=== PATIENT | male | born 1995 | race Two or more races ===

== ENCOUNTER 2019-06-09 19:19 | Emergency (ER) | payer SELFPAY ==
[~2019-06-09] VITALS: Ht 147.3 cm; Wt 77.1 kg
[2019-06-09 19:55] VITALS: BP 124/83
== END 2019-06-09 21:01 | disposition home or self-care (01) ==
LOC: ER 19:19
DX: J03.90 Acute tonsillitis, unspecified (principal); Z88.0 Allergy status to penicillin

== ENCOUNTER 2019-06-19 16:47 | Observation (INO) | payer BC ==
[2019-06-19] MEDS ORDERED: PREN-96 PO (17:14)
== END 2019-06-19 18:00 | disposition home or self-care (01) | DRG 833 ==
LOC: LDRP 16:47 → EDSEX 16:47
PROVIDERS: ADMIT Specialist; ATTEND Specialist
DX: O46.92 Antepartum hemorrhage, unspecified, second trimester (principal); Z3A.21 21 weeks gestation of pregnancy
CPT/HCPCS: 59025; 76815; 81002; G0378

== ENCOUNTER 2019-10-11 09:28 | Observation (INO) | payer BC ==
[~2019-10-11 09:28] MED LIST: PREN-96 PO
[2019-10-11] MEDS ORDERED: FERR-7 PO (10:00)
[2019-10-11 10:31] LABS: Basophils % (auto) 0.5 % (0.0-2.0); Eosinophils # (auto) 0.2 10 ^3/uL (0-0.8); Mean Corpuscular Volume 72.8 fL (80.0-100.0); Monocytes # (auto) 0.7 10 ^3/uL (0-1.3)
[2019-10-11 10:32] LABS: Basophils # (auto) 0 10 ^3/uL (0-0.2); Eosinophils % (auto) 1.5 % (0.0-7.0); Hematocrit 30.3 % (36.0-46.0); Hemoglobin 9.4 g/dL (12.2-16.2); Lymphocytes # (auto) 1.8 10 ^3/uL (0.4-5.4); Lymphocytes % (auto) 17.1 % (10.0-50.0); Mean Corpuscular Hemoglobin 22.6 pg (28.0-32.0); Monocytes % (auto) 6.2 % (0.0-12.0); Neutrophils % (auto) 74.7 % (37.0-80.0); Platelet Count (auto) 297 10^3/uL (140-450); Red Blood Cells 4.17 10^6/uL (4.0-5.20); Red Cell Distribution Width 19.4 % (11.8-14.3); White Blood Cell 10.7 10^3/uL (4.4-10.8)
[2019-10-11 10:47] LABS: Calcium 8.1 mg/dL (8.5-10.1); Potassium 3.9 mmol/L (3.5-5.1)
[2019-10-11 10:51] LABS: BUN/Creatinine Ratio 18.8; Bilirubin, Total 0.2 mg/dL (0.2-1.0); Uric Acid 4.8 mg/dL (2.6-6.0)
== END 2019-10-11 10:27 | disposition home or self-care (01) | DRG 833 ==
LOC: LDRP 09:28
PROVIDERS: ADMIT Obstetrics & Gynecology; ATTEND Obstetrics & Gynecology
DX: O24.410 Gestational diabetes mellitus in pregnancy, diet controlled (principal); Z3A.36 36 weeks gestation of pregnancy
CPT/HCPCS: 36415; 76818; 80053; 81002; 82948; 82962; 83036; 84550; 85025; G0378

== ENCOUNTER 2019-10-18 08:06 | Observation (INO) | payer BC ==
[~2019-10-18 08:06] MED LIST changes: +FERR-7 PO
[2019-10-18 09:09] LABS: Urine Bacteria FEW /hpf (None Seen); Urine Blood 1+ /uL (Negative); Urine Specific Gravity 1.011 (1.001-1.035); Urine WBC 5 /hpf (0 - 5)
[2019-10-18 09:47] LABS: Basophils # (auto) 0.1 10 ^3/uL (0-0.2); Basophils % (auto) 0.9 % (0.0-2.0); Eosinophils # (auto) 0.2 10 ^3/uL (0-0.8); Eosinophils % (auto) 1.8 % (0.0-7.0); Hematocrit 32.2 % (36.0-46.0); Hemoglobin 9.8 g/dL (12.2-16.2); Lymphocytes % (auto) 16.9 % (10.0-50.0); Mean Corpuscular Hgb Conc. 30.4 g/dL (32.0-36.0); Mean Corpuscular Volume 72.3 fL (80.0-100.0); Monocytes # (auto) 0.7 10 ^3/uL (0-1.3); Neutrophils # (auto) 8.8 10 ^3/uL (1.6-8.6); Neutrophils % (auto) 74.4 % (37.0-80.0); Nucleated Red Blood Cells % 0.1 %; Platelet Count (auto) 287 10^3/uL (140-450); Red Blood Cells 4.45 10^6/uL (4.0-5.20); Red Cell Distribution Width 19.9 % (11.8-14.3); White Blood Cell 11.8 10^3/uL (4.4-10.8)
[2019-10-18 10:03] LABS: INR 0.94 (0.9-1.15); Partial Thromboplastin Time 27.5 sec (23.64-32.05)
[2019-10-18 10:04] LABS: Albumin 2.1 g/dL (3.4-5.0); Calcium 8.3 mg/dL (8.5-10.1); Uric Acid 4.1 mg/dL (2.6-6.0)
[2019-10-18 10:07] LABS: Bilirubin, Total 0.2 mg/dL (0.2-1.0); Total Protein 6.3 g/dL (6.4-8.2)
== END 2019-10-18 10:30 | disposition home or self-care (01) | DRG 832 ==
LOC: LDRP 08:06
PROVIDERS: ADMIT Obstetrics & Gynecology; ATTEND Obstetrics & Gynecology
DX: O24.119 Pre-existing type 2 diabetes mellitus, in pregnancy, unspecified trimester (principal); O23.43 Unspecified infection of urinary tract in pregnancy, third trimester; R60.9 Edema, unspecified; Z3A.37 37 weeks gestation of pregnancy
CPT/HCPCS: 36415; 59025; 76818; 80053; 81001; 81002; 82962; 84550; 85025; 85610; 85730; G0378

== ENCOUNTER 2019-10-23 10:25 | Observation (INO) | payer BC ==
[2019-10-23 10:57] LABS: Basophils # (auto) 0.1 10 ^3/uL (0-0.2); Eosinophils # (auto) 0.1 10 ^3/uL (0-0.8); Hemoglobin 10.3 g/dL (12.2-16.2); Lymphocytes # (auto) 2.1 10 ^3/uL (0.4-5.4); Neutrophils # (auto) 8.9 10 ^3/uL (1.6-8.6); Red Blood Cells 4.52 10^6/uL (4.0-5.20)
[2019-10-23 10:59] LABS: Basophils % (auto) 0.6 % (0.0-2.0); Hematocrit 32.9 % (36.0-46.0); Lymphocytes % (auto) 17.9 % (10.0-50.0); Mean Corpuscular Hemoglobin 22.8 pg (28.0-32.0); Mean Corpuscular Hgb Conc. 31.3 g/dL (32.0-36.0); Mean Corpuscular Volume 72.8 fL (80.0-100.0); Monocytes # (auto) 0.7 10 ^3/uL (0-1.3); Monocytes % (auto) 6.1 % (0.0-12.0); Neutrophils % (auto) 74.4 % (37.0-80.0); Nucleated Red Blood Cells % 0.2 %; Platelet Count (auto) 297 10^3/uL (140-450)
[2019-10-23 11:01] LABS: Red Cell Distribution Width 20.7 % (11.8-14.3)
[2019-10-23 11:06] LABS: Urine Bacteria FEW /hpf (None Seen); Urine Blood 2+ /uL (Negative); Urine Mucus FEW (None Seen); Urine Specific Gravity 1.032 (1.001-1.035); Urine WBC 4 /hpf (0 - 5)
[2019-10-23 11:12] LABS: INR 0.95 (0.9-1.15); Partial Thromboplastin Time 30.2 sec (23.64-32.05)
[2019-10-23 11:25] LABS: Calcium 8.2 mg/dL (8.5-10.1)
[2019-10-23 11:27] LABS: BUN/Creatinine Ratio 16.4; Bilirubin, Total 0.2 mg/dL (0.2-1.0); Total Protein 5.8 g/dL (6.4-8.2); Uric Acid 5.5 mg/dL (2.6-6.0)
== END 2019-10-23 11:45 | disposition home or self-care (01) | DRG 833 ==
LOC: LDRP 10:25
PROVIDERS: ADMIT Specialist; ATTEND Specialist
DX: O13.3 Gestational [pregnancy-induced] hypertension without significant proteinuria, third trimester (principal); Z3A.38 38 weeks gestation of pregnancy
CPT/HCPCS: 36415; 59025; 80053; 81001; 84550; 85025; 85610; 85730; G0378

== ENCOUNTER 2019-10-25 08:09 | Observation (INO) | payer BC ==
[2019-10-25 10:48] LABS: Protein, Urine 218.6 mg/dL (0.0-11.9)
[2019-10-25 10:50] LABS: 24 Hr. Total Protein, Urine 3060.4 mg/24 Hr (<149.1)
== END 2019-10-25 11:45 | disposition home or self-care (01) | DRG 833 ==
LOC: LDRP 08:09
PROVIDERS: ADMIT Specialist; ATTEND Specialist
DX: O24.419 Gestational diabetes mellitus in pregnancy, unspecified control (principal); Z3A.38 38 weeks gestation of pregnancy
CPT/HCPCS: 59025; 76818; 81002; 82948; 82962; 84156; G0378

== ENCOUNTER 2019-10-25 19:05 | Inpatient (IN) | payer BC ==
[~2019-10-25] VITALS: Ht 144.8 cm; Wt 93.0 kg
[2019-10-25] MEDS ORDERED: LACT. RINGERS/OXYTOCIN 20UNITS 1,000 ML IV SCH (19:29)
[2019-10-25] MEDS ORDERED: PHISODERM TOP SOLN 240ML BTL TOP PRN (19:30)
[2019-10-25] MEDS ORDERED: METHYLERGONOVINE MALEATE 0.2 MG/ML AMP IM PRN (19:30)
[2019-10-25] MEDS ORDERED: LIDOCAINE 2%HCL (LOCAL ANESTH.) INJ 20ML MDV ID ONE (19:30)
[2019-10-25] MEDS ORDERED: WITCH HAZEL-GLYCERIN PAD TOP PRN (19:30)
[2019-10-25] MEDS ORDERED: DERMOPLAST 60ML BOTTLE TOP PRN (19:30)
[2019-10-25 20:23] LABS: Basophils # (auto) 0 10 ^3/uL (0-0.2); Eosinophils # (auto) 0.1 10 ^3/uL (0-0.8); Eosinophils % (auto) 1.3 % (0.0-7.0); Hematocrit 30.8 % (36.0-46.0); Hemoglobin 9.6 g/dL (12.2-16.2); Mean Corpuscular Hgb Conc. 31.3 g/dL (32.0-36.0); Monocytes # (auto) 0.8 10 ^3/uL (0-1.3); Nucleated Red Blood Cells % 0.1 %
[2019-10-25 20:26] LABS: Basophils % (auto) 0.2 % (0.0-2.0); Lymphocytes # (auto) 2.2 10 ^3/uL (0.4-5.4); Lymphocytes % (auto) 19.5 % (10.0-50.0); Mean Corpuscular Volume 73.4 fL (80.0-100.0); Monocytes % (auto) 7.2 % (0.0-12.0); Neutrophils % (auto) 71.8 % (37.0-80.0); Platelet Count (auto) 270 10^3/uL (140-450); White Blood Cell 11.2 10^3/uL (4.4-10.8)
[2019-10-25 20:35] LABS: Albumin 1.9 g/dL (3.4-5.0); BUN/Creatinine Ratio 22.4; Bilirubin, Total 0.2 mg/dL (0.2-1.0); Total Protein 5.5 g/dL (6.4-8.2); Uric Acid 6.2 mg/dL (2.6-6.0)
[2019-10-25 20:38] LABS: INR 0.93 (0.9-1.15); Partial Thromboplastin Time 29.8 sec (23.64-32.05)
[2019-10-25 21:02] LABS: Red Cell Distribution Width 21.5 % (11.8-14.3)
[2019-10-25 21:09] LABS: Amphetamine Screen, Urine NEGATIVE (NEGATIVE); Barbiturate Scree,Urine NEGATIVE (NEGATIVE); Benzodiazephine Screen, Urine NEGATIVE (NEGATIVE); Cannabinoid Screen, Urine NEGATIVE (NEGATIVE); Cocaine Screen, Urine NEGATIVE (NEGATIVE); Opiate Scree,Urine NEGATIVE (NEGATIVE); Phencyclidine Screen, Urine NEGATIVE (NEGATIVE)
[2019-10-25] MEDS: miSOPROStol 50 MCG per PRE-CUT 1/2 TAB PO PRN (21:30)
[2019-10-25 21:31] LABS: Urine Bacteria NONE SEEN /hpf (None Seen); Urine Blood 2+ /uL (Negative); Urine Mucus FEW (None Seen); Urine Specific Gravity 1.041 (1.001-1.035); Urine WBC 4 /hpf (0 - 5)
[2019-10-26] MEDS ORDERED: ACCU-CHEK COMFORT CURVE STRIP VI SCH (01:00)
[2019-10-26] MEDS: miSOPROStol 50 MCG per PRE-CUT 1/2 TAB PO PRN (01:30)
[2019-10-26] MEDS: LACTATED RINGER'S 1,000 ML IV SCH ×2 (01:56→07:22)
[2019-10-26] MEDS ORDERED: ePHEDrine SULFATE 50 MG/ML AMP IV ONE ×3 (05:15→09:00)
[2019-10-26] MEDS ORDERED: fentaNYL 200mCg/100ml W ROPIVA 100 ML EPI SCH ×3 (05:15→09:00)
[2019-10-26] MEDS ORDERED: LIDOCAINE HCL 2 %PF INJ 10ML AMP IJ ONE ×3 (07:30→09:00)
[2019-10-26] MEDS ORDERED: fentaNYL CITRATE 100 MCG/2 ML VL IV ONE ×2 (07:30→09:00)
[2019-10-26] MEDS ORDERED: LACTATED RINGER'S 1,000 ML IV ONE (08:49)
[2019-10-26] MEDS ORDERED: NALOXONE HCL 0.4 MG/ML VIAL IV ONE (09:00)
[2019-10-26] MEDS ORDERED: LIDOCAINE W/ EPINEPHRINE 1 % INJ 30ML IJ ONE (09:00)
[2019-10-26] MEDS ORDERED: ACETAMINOPHEN 325 MG TAB PO PRN (15:00)
[2019-10-26 15:34] LABS: Basophils # (auto) 0.1 10 ^3/uL (0-0.2); Eosinophils # (auto) 0.1 10 ^3/uL (0-0.8); Hemoglobin 10.7 g/dL (12.2-16.2); Lymphocytes # (auto) 1.3 10 ^3/uL (0.4-5.4); Lymphocytes % (auto) 9.6 % (10.0-50.0); Mean Corpuscular Hemoglobin 23.5 pg (28.0-32.0); Mean Corpuscular Hgb Conc. 31.5 g/dL (32.0-36.0); Nucleated Red Blood Cells % 0.1 %; White Blood Cell 13.8 10^3/uL (4.4-10.8)
[2019-10-26 15:35] LABS: Basophils % (auto) 0.5 % (0.0-2.0); Eosinophils % (auto) 0.5 % (0.0-7.0); Mean Corpuscular Volume 74.6 fL (80.0-100.0); Monocytes # (auto) 0.6 10 ^3/uL (0-1.3); Monocytes % (auto) 4.4 % (0.0-12.0); Neutrophils # (auto) 11.8 10 ^3/uL (1.6-8.6); Platelet Count (auto) 262 10^3/uL (140-450); Red Blood Cells 4.55 10^6/uL (4.0-5.20)
[2019-10-26 15:37] LABS: Red Cell Distribution Width 22.1 % (11.8-14.3)
[2019-10-26] MEDS: IBUPROFEN 600 MG TAB PO PRN (15:44)
[2019-10-26] MEDS ORDERED: MEASLES, MUMPS & RUBELLA VAC(MMRII) 0.5ML SC ONE (18:00)
[2019-10-26 18:45] VITALS: BP 132/73
[2019-10-26 23:25] VITALS: BP 129/75
[2019-10-27 02:55] VITALS: BP 127/73
[2019-10-27 05:06] LABS: RPR Non Reactive (Non Reactive)
[2019-10-27 07:00] VITALS: BP 131/82
[2019-10-27] MEDS: IBUPROFEN 600 MG TAB PO PRN (07:30)
[2019-10-27 11:15] VITALS: BP 124/77
[2019-10-27 15:04] VITALS: BP 129/77
== END 2019-10-27 17:15 | disposition home or self-care (01) | DRG 806 ==
LOC: LDRP 19:05
PROVIDERS: ADMIT Obstetrics & Gynecology; ATTEND Obstetrics & Gynecology
PROC: 10E0XZZ Delivery of Products of Conception, External Approach (ICD-10-PCS; principal; 2019-10-26)
PROC: 3E0R3BZ Introduction of Anesthetic Agent into Spinal Canal, Percutaneous Approach (ICD-10-PCS; 2019-10-26)
PROC: 00HU33Z Insertion of Infusion Device into Spinal Canal, Percutaneous Approach (ICD-10-PCS; 2019-10-26)
PROC: 0UQGXZZ Repair Vagina, External Approach (ICD-10-PCS; 2019-10-26)
PROC: 3E0134Z Introduction of Serum, Toxoid and Vaccine into Subcutaneous Tissue, Percutaneous Approach (ICD-10-PCS; 2019-10-27)
DX: O24.420 Gestational diabetes mellitus in childbirth, diet controlled (principal); O71.4 Obstetric high vaginal laceration alone; Z37.0 Single live birth; O69.81X0 Labor and delivery complicated by cord around neck, without compression, not applicable or unspecified; O77.0 Labor and delivery complicated by meconium in amniotic fluid; O14.94 Unspecified pre-eclampsia, complicating childbirth; Z3A.38 38 weeks gestation of pregnancy; Z88.0 Allergy status to penicillin; Z23 Encounter for immunization
CPT/HCPCS: 36415; 51702; 59025; 59409; 80053; 80307; 81001; 81002; 82948; 82962; 84112; 84550; 85025; 85610; 85730; 86592; 86850; 86900; 86901; 90471; 94760; 96361; 96365; G0378; J2590

== ENCOUNTER 2023-05-28 17:00 | Observation (INO) | payer OTHER ==
[~2023-05-28] VITALS: Ht 149.9 cm; Wt 90.7 kg
[2023-05-28 18:16] LABS: Fern Testing Negative
== END 2023-05-28 21:28 | disposition home or self-care (01) ==
LOC: LDRP 17:00
PROVIDERS: ADMIT Obstetrics & Gynecology; ATTEND Obstetrics & Gynecology
DX: O24.419 Gestational diabetes mellitus in pregnancy, unspecified control (principal); Z79.899 Other long term (current) drug therapy; Z3A.34 34 weeks gestation of pregnancy
CPT/HCPCS: 59025; 76818; 81002; 82948; 82962; 84112; 94760; G0378; Q0114

== ENCOUNTER 2023-06-01 09:58 | Observation (INO) | payer OTHER, MEDICAID | END 2023-06-01 11:15 | disposition home or self-care (01) | LOC: UNDOADMOB 09:58 → LDRP 09:58 → UNDODISOB 11:15 | PROVIDERS: ADMIT Obstetrics & Gynecology; ATTEND Obstetrics & Gynecology | DX: O24.419 Gestational diabetes mellitus in pregnancy, unspecified control (principal); Z3A.34 34 weeks gestation of pregnancy | CPT/HCPCS: 59025; 76818; 81002; 82948; 94760; G0378 ==

== ENCOUNTER 2023-06-08 10:00 | Observation (INO) | payer OTHER, MEDICAID ==
[2023-06-08 11:38] LABS: Basophils # (auto) 0 10 ^3/uL (0-0.2); Eosinophils # (auto) 0.1 10 ^3/uL (0-0.8); Monocytes # (auto) 0.3 10 ^3/uL (0-1.3); White Blood Cell 7.6 10^3/uL (4.4-10.8)
[2023-06-08 11:41] LABS: Basophils % (auto) 0.4 % (0.0-2.0); Eosinophils % (auto) 1.7 % (0.0-7.0); Hematocrit 29.5 % (36.0-46.0); Hemoglobin 9.4 g/dL (12.2-16.2); Lymphocytes % (auto) 25.7 % (10.0-50.0); Mean Corpuscular Hemoglobin 22.4 pg (28.0-32.0); Mean Corpuscular Hgb Conc. 31.7 g/dL (32.0-36.0); Mean Corpuscular Volume 70.7 fL (80.0-100.0); Monocytes % (auto) 4.5 % (0.0-12.0); Neutrophils # (auto) 5.1 10 ^3/uL (1.6-8.6); Neutrophils % (auto) 67.7 % (37.0-80.0); Red Blood Cells 4.18 10^6/uL (4.0-5.20); Red Cell Distribution Width 16.7 % (11.8-14.3)
[2023-06-08 11:55] LABS: INR 0.93 (0.9-1.15); Partial Thromboplastin Time 32.7 SEC (24.5-34.5); Prothrombin Time 9.8 sec (9.3-11.8)
[2023-06-08 12:05] LABS: Alanine Aminotransferase 29 U/L (7-40); Albumin 3.1 g/dL (3.2-4.8); Alkaline Phosphatase 148 U/L (46-116); Anion Gap 8 (5-15); Aspartate Aminotransferase 29 U/L (13-40); Bilirubin, Total 0.5 mg/dL (0.2-1.0); Calcium 8.8 mg/dL (8.5-10.1); Carbon Dioxide 20 mmol/L (20-30); Chloride 109 mmol/L (98-107); Glucose 114 mg/dL (74-106); Potassium 3.7 mmol/L (3.5-5.1); Sodium 137 mmol/L (136-145); Total Protein 5.2 g/dL (5.7-8.2)
[2023-06-08 12:05] LABS: Urine Bacteria FEW /hpf (None Seen); Urine Blood 1+ /uL (Negative); Urine Clarity HAZY (Clear); Urine Color Yellow (Yellow); Urine Mucus FEW (None Seen); Urine Protein, UAD 2+ (Negative); Urine WBC 7 /hpf (0 - 5); Urine pH 6.5 (5.0-8.0)
[2023-06-08 12:15] LABS: BUN/Creatinine Ratio 9.8 (10.0-20.0); Blood Urea Nitrogen < 5 mg/dL (9-23)
[2023-06-08 12:31] LABS: Protein, Urine 180.3 mg/dL (0.0-11.9)
[2023-06-08 12:33] LABS: Creatinine, Urine 173.13 mg/dL (30.0-125.0); Urine Protein/Creatinine Ratio 1.04
[2023-06-08 13:02] LABS: Uric Acid 5.7 mg/dL (3.1-7.8)
[2023-06-09] MEDS ORDERED: CEPHALEXIN 250 MG CAP PO SCH (12:00)
== END 2023-06-08 13:01 | disposition home or self-care (01) ==
LOC: UNDOADMOB 10:00 → LDRP 10:00 → UNDODISOB 13:01
PROVIDERS: ADMIT Obstetrics & Gynecology; ATTEND Obstetrics & Gynecology
DX: O13.3 Gestational [pregnancy-induced] hypertension without significant proteinuria, third trimester (principal); O24.419 Gestational diabetes mellitus in pregnancy, unspecified control; Z3A.35 35 weeks gestation of pregnancy
CPT/HCPCS: 36415; 59025; 76818; 80053; 81001; 81002; 82570; 82948; 82962; 84156; 84550; 85025; 85610; 85730; 94760; G0378

== ENCOUNTER 2023-06-10 08:00 | Observation (INO) | payer OTHER, MEDICAID ==
[2023-06-10 10:13] LABS: Urine Bacteria FEW /hpf (None Seen); Urine Blood 1+ /uL (Negative); Urine Clarity HAZY (Clear); Urine Color Yellow (Yellow); Urine Mucus FEW (None Seen); Urine Protein, UAD 2+ (Negative); Urine Specific Gravity 1.026 (1.001-1.035); Urine WBC 10 /hpf (0 - 5); Urine pH 6.5 (5.0-8.0)
[2023-06-10 11:14] LABS: Creatinine, Urine 182.85 mg/dL (30.0-125.0); Protein, Urine 150.3 mg/dL (0.0-11.9); Urine Protein/Creatinine Ratio 0.82
[2023-06-10 11:43] LABS: Alanine Aminotransferase 23 U/L (7-40); Albumin 3.2 g/dL (3.2-4.8); Alkaline Phosphatase 151 U/L (46-116); Anion Gap 10 (5-15); Aspartate Aminotransferase 26 U/L (13-40); Bilirubin, Total 0.4 mg/dL (0.2-1.0); Calcium 8.4 mg/dL (8.5-10.1); Carbon Dioxide 20 mmol/L (20-30); Chloride 109 mmol/L (98-107); Glucose 72 mg/dL (74-106); Sodium 139 mmol/L (136-145); Total Protein 5.4 g/dL (5.7-8.2)
[2023-06-10 11:44] LABS: BUN/Creatinine Ratio 10.4 (10.0-20.0); Blood Urea Nitrogen < 5 mg/dL (9-23)
[2023-06-10 11:50] LABS: INR 0.94 (0.9-1.15); Partial Thromboplastin Time 29.6 SEC (24.5-34.5); Prothrombin Time 9.9 sec (9.3-11.8)
== END 2023-06-10 12:00 | disposition home or self-care (01) ==
LOC: LDRP 08:00
PROVIDERS: ADMIT Obstetrics & Gynecology; ATTEND Obstetrics & Gynecology
DX: O13.3 Gestational [pregnancy-induced] hypertension without significant proteinuria, third trimester (principal); Z3A.35 35 weeks gestation of pregnancy
CPT/HCPCS: 36415; 59025; 76818; 80053; 81001; 81002; 82570; 84156; 84550; 85610; 85730; 94760; G0378

== ENCOUNTER 2023-06-11 10:58 | Observation (INO) | payer OTHER, MEDICAID ==
[2023-06-11 12:29] LABS: Urine Bacteria FEW /hpf (None Seen); Urine Blood 1+ /uL (Negative); Urine Budding Yeast OCCASIONAL /hpf (None Seen); Urine Clarity HAZY (Clear); Urine Color Yellow (Yellow); Urine Protein, UAD 2+ (Negative); Urine Urobilinogen Normal (Negative); Urine WBC 16 /hpf (0 - 5); Urine pH 6.5 (5.0-8.0)
[2023-06-11 12:51] LABS: Protein, Urine 156.8 mg/dL (0.0-11.9)
[2023-06-11 12:54] LABS: Creatinine, Urine 139.4 mg/dL (30.0-125.0); Urine Protein/Creatinine Ratio 1.12
[2023-06-11 13:21] LABS: Alanine Aminotransferase 26 U/L (7-40); Albumin 3.1 g/dL (3.2-4.8); Alkaline Phosphatase 146 U/L (46-116); Anion Gap 9 (5-15); Aspartate Aminotransferase 23 U/L (13-40); Blood Urea Nitrogen 5 mg/dL (9-23); Carbon Dioxide 20 mmol/L (20-30); Chloride 108 mmol/L (98-107); Glucose 91 mg/dL (74-106); Potassium 3.8 mmol/L (3.5-5.1); Sodium 137 mmol/L (136-145); Uric Acid 5.6 mg/dL (3.1-7.8)
[2023-06-11 13:22] LABS: Bilirubin, Total 0.4 mg/dL (0.2-1.0); Total Protein 5.2 g/dL (5.7-8.2)
== END 2023-06-11 13:39 | disposition home or self-care (01) ==
LOC: LDRP 10:58
PROVIDERS: ADMIT Obstetrics & Gynecology; ATTEND Obstetrics & Gynecology
DX: O13.3 Gestational [pregnancy-induced] hypertension without significant proteinuria, third trimester (principal); Z3A.36 36 weeks gestation of pregnancy
CPT/HCPCS: 36415; 59025; 80053; 81001; 82570; 84156; 84550; 94760; G0378

== ENCOUNTER 2023-06-13 09:21 | Observation (INO) | payer OTHER, MEDICAID ==
[2023-06-13 10:00] LABS: Urine Bacteria FEW /hpf (None Seen); Urine Blood 1+ /uL (Negative); Urine Clarity HAZY (Clear); Urine Color Yellow (Yellow); Urine Mucus FEW (None Seen); Urine Protein, UAD 2+ (Negative); Urine Specific Gravity 1.019 (1.001-1.035); Urine Urobilinogen Normal (Negative); Urine WBC 3 /hpf (0 - 5); Urine pH 6.5 (5.0-8.0)
[2023-06-13 10:03] LABS: Creatinine, Urine 164.11 mg/dL (30.0-125.0)
[2023-06-13 10:06] LABS: Protein, Urine 309.1 mg/dL (0.0-11.9); Urine Protein/Creatinine Ratio 1.88
[2023-06-13 10:38] LABS: Basophils # (auto) 0 10 ^3/uL (0-0.2); Basophils % (auto) 0.3 % (0.0-2.0); Eosinophils # (auto) 0.1 10 ^3/uL (0-0.8); Eosinophils % (auto) 1.5 % (0.0-7.0); Lymphocytes # (auto) 2.2 10 ^3/uL (0.4-5.4); Monocytes # (auto) 0.6 10 ^3/uL (0-1.3); White Blood Cell 9.4 10^3/uL (4.4-10.8)
[2023-06-13 10:41] LABS: Hematocrit 29.1 % (36.0-46.0); Lymphocytes % (auto) 23.4 % (10.0-50.0); Mean Corpuscular Hemoglobin 22.1 pg (28.0-32.0); Mean Corpuscular Hgb Conc. 30.8 g/dL (32.0-36.0); Mean Corpuscular Volume 71.8 fL (80.0-100.0); Monocytes % (auto) 6.2 % (0.0-12.0); Neutrophils # (auto) 6.5 10 ^3/uL (1.6-8.6); Neutrophils % (auto) 68.6 % (37.0-80.0); Nucleated Red Blood Cells % 0.2 %; Red Blood Cells 4.05 10^6/uL (4.0-5.20)
[2023-06-13 10:46] LABS: Alanine Aminotransferase 27 U/L (7-40); Albumin 3.1 g/dL (3.2-4.8); Alkaline Phosphatase 151 U/L (46-116); Anion Gap 9 (5-15); Aspartate Aminotransferase 22 U/L (13-40); BUN/Creatinine Ratio 11.3 (10.0-20.0); Bilirubin, Total 0.4 mg/dL (0.2-1.0); Blood Urea Nitrogen 6 mg/dL (9-23); Calcium 8.3 mg/dL (8.7-10.4); Carbon Dioxide 19 mmol/L (20-30); Chloride 110 mmol/L (98-107); Glucose 102 mg/dL (74-106); Potassium 3.9 mmol/L (3.5-5.1); Sodium 138 mmol/L (136-145)
[2023-06-13 11:06] LABS: 24 Hr. Total Protein, Urine 5563.8 mg/24 Hr (<149.1)
[2023-06-13 12:08] LABS: INR 0.91 (0.9-1.15); Prothrombin Time 9.8 sec (9.3-11.8)
== END 2023-06-13 11:41 | disposition home or self-care (01) ==
LOC: LDRP 09:21 → UNDOADMOB 09:21 → LDRP 09:28
PROVIDERS: ADMIT Obstetrics & Gynecology; ATTEND Obstetrics & Gynecology
DX: O24.419 Gestational diabetes mellitus in pregnancy, unspecified control (principal); O13.3 Gestational [pregnancy-induced] hypertension without significant proteinuria, third trimester; Z3A.36 36 weeks gestation of pregnancy; Z88.0 Allergy status to penicillin
CPT/HCPCS: 36415; 59025; 76818; 80053; 81001; 81002; 82570; 82948; 82962; 84156; 84550; 85025; 85610; 94760; G0378

== ENCOUNTER → 2023-06-14 | Outpatient (CLI) | payer MEDICAID, OTHER ==
[2023-06-14 14:49] LABS: Basophils # (auto) 0 10 ^3/uL (0-0.2); Basophils % (auto) 0.4 % (0.0-2.0); Eosinophils # (auto) 0.1 10 ^3/uL (0-0.8); Eosinophils % (auto) 1.3 % (0.0-7.0); Hematocrit 31.2 % (36.0-46.0); Hemoglobin 9.4 g/dL (12.2-16.2); Lymphocytes # (auto) 2.4 10 ^3/uL (0.4-5.4); Lymphocytes % (auto) 21.7 % (10.0-50.0); Mean Corpuscular Hemoglobin 21.1 pg (28.0-32.0); Mean Corpuscular Hgb Conc. 30.1 g/dL (32.0-36.0); Mean Corpuscular Volume 69.9 fL (80.0-100.0); Monocytes # (auto) 0.8 10 ^3/uL (0-1.3); Monocytes % (auto) 6.8 % (0.0-12.0); Neutrophils # (auto) 7.7 10 ^3/uL (1.6-8.6); Neutrophils % (auto) 69.8 % (37.0-80.0); Nucleated Red Blood Cells % 0.1 %; Red Blood Cells 4.46 10^6/uL (4.0-5.20); Red Cell Distribution Width 17.2 % (11.8-14.3); White Blood Cell 11.1 10^3/uL (4.4-10.8)
[2023-06-15 07:06] LABS: RPR Non Reactive (Non Reactive)
[2023-06-15 10:06] LABS: Treponema Pallidum Ab LC Non Reactive (Non Reactive)
== END | disposition home or self-care (01) ==
LOC: LAB 14:32
PROVIDERS: ATTEND Obstetrics & Gynecology
DX: Z34.80 Encounter for supervision of other normal pregnancy, unspecified trimester (principal); Z3A.00 Weeks of gestation of pregnancy not specified
CPT/HCPCS: 36415; 83036; 84112; 85025; 86592

== ENCOUNTER 2023-06-15 12:04 | Observation (INO) | payer OTHER, MEDICAID | END 2023-06-15 14:32 | disposition home or self-care (01) | LOC: LDRP 12:04 → UNDOADMOB 12:04 → LDRP 12:19 → UNDODISOB 14:32 | PROVIDERS: ADMIT Obstetrics & Gynecology; ATTEND Obstetrics & Gynecology | DX: O13.3 Gestational [pregnancy-induced] hypertension without significant proteinuria, third trimester (principal); O24.419 Gestational diabetes mellitus in pregnancy, unspecified control; Z3A.36 36 weeks gestation of pregnancy | CPT/HCPCS: 59025; 76818; 81002; 94760; G0378 ==

== ENCOUNTER 2023-06-20 15:10 | Inpatient (IN) | payer MEDICAID, OTHER ==
[~2023-06-20] VITALS: Ht 149.9 cm; Wt 95.3 kg
[2023-06-20 16:20] LABS: Urine Bacteria NONE SEEN /hpf (None Seen); Urine Blood 2+ /uL (Negative); Urine Clarity HAZY (Clear); Urine Color Yellow (Yellow); Urine Mucus FEW (None Seen); Urine Protein, UAD 3+ (Negative); Urine Specific Gravity 1.032 (1.001-1.035); Urine WBC 35 /hpf (0 - 5); Urine pH 6.5 (5.0-8.0)
[2023-06-20 16:38] LABS: Creatinine, Urine 258.65 mg/dL (30.0-125.0); Urine Protein/Creatinine Ratio 3.09
[2023-06-20 16:43] LABS: Protein, Urine 154.2 mg/dL (0.0-11.9)
[2023-06-20 16:56] LABS: Basophils # (auto) 0 10 ^3/uL (0-0.2); Eosinophils # (auto) 0.1 10 ^3/uL (0-0.8); Lymphocytes # (auto) 2.4 10 ^3/uL (0.4-5.4); Red Cell Distribution Width 17.4 % (11.8-14.3)
[2023-06-20 16:58] LABS: Basophils % (auto) 0.3 % (0.0-2.0); Hematocrit 29.7 % (36.0-46.0); Mean Corpuscular Hemoglobin 21.4 pg (28.0-32.0); Mean Corpuscular Hgb Conc. 30.4 g/dL (32.0-36.0); Mean Corpuscular Volume 70.4 fL (80.0-100.0); Monocytes # (auto) 0.9 10 ^3/uL (0-1.3); Monocytes % (auto) 7.4 % (0.0-12.0); Neutrophils # (auto) 8.6 10 ^3/uL (1.6-8.6); Neutrophils % (auto) 71.3 % (37.0-80.0); Red Blood Cells 4.22 10^6/uL (4.0-5.20); White Blood Cell 12.1 10^3/uL (4.4-10.8)
[2023-06-20 17:13] LABS: Albumin 3.5 g/dL (3.2-4.8); Alkaline Phosphatase 174 U/L (46-116); Anion Gap 12 (5-15); Aspartate Aminotransferase 10 U/L (13-40); BUN/Creatinine Ratio 11.9 (10.0-20.0); Bilirubin, Total 0.3 mg/dL (0.2-1.0); Blood Urea Nitrogen 7 mg/dL (9-23); Calcium 8.5 mg/dL (8.7-10.4); Carbon Dioxide 20 mmol/L (20-30); Chloride 106 mmol/L (98-107); Glucose 86 mg/dL (74-106); Potassium 4.1 mmol/L (3.5-5.1); Sodium 138 mmol/L (136-145); Total Protein 5.8 g/dL (5.7-8.2); Uric Acid 5.1 mg/dL (3.1-7.8)
[2023-06-20 17:57] LABS: Alanine Aminotransferase 9 U/L (7-40)
[2023-06-20 18:06] LABS: INR 0.93 (0.9-1.15); Partial Thromboplastin Time 27.7 SEC (24.5-34.5); Prothrombin Time 9.8 sec (9.3-11.8)
[2023-06-20] MEDS ORDERED: miSOPROStol 50 MCG per PRE-CUT 1/2 TAB PO PRN (19:15)
[2023-06-20] MEDS ORDERED: LIDOCAINE 2%HCL (LOCAL ANESTH.) INJ 20ML MDV IJ PRN (19:15)
[2023-06-20] MEDS ORDERED: PHISODERM TOP SOLN 240ML BTL TOP PRN (19:15)
[2023-06-20] MEDS ORDERED: DERMOPLAST 60ML BOTTLE TOP PRN (19:15)
[2023-06-20] MEDS ORDERED: PROMETHAZINE HCL 25 MG/ML 1ML IV PRN (19:15)
[2023-06-20] MEDS ORDERED: BUTORPHANOL TARTRATE 2 MG/1 ML VIAL IV PRN ×2 (19:15)
[2023-06-20] MEDS ORDERED: ceFAZolin 2 GM/D5W100ml 100 ML IV ONE (20:45)
[2023-06-20] MEDS ORDERED: fentaNYL CITRATE 100 MCG/2 ML VL IV PRN (20:45)
[2023-06-20] MEDS ORDERED: MINERAL OIL TOPICAL 10ml TOP PRN (20:45)
[2023-06-20] MEDS ORDERED: PROMETHAZINE HCL 25 MG/ML 1ML IM PRN (20:45)
[2023-06-20] MEDS ORDERED: miSOPROStol 100 mcg TAB ONE (22:15)
[2023-06-20 22:28] LABS: Amphetamine Screen, Urine Neg (NEGATIVE); Barbiturate Scree,Urine Neg (NEGATIVE); Benzodiazephine Screen, Urine Neg (NEGATIVE); Cannabinoid Screen, Urine Neg (NEGATIVE); Cocaine Screen, Urine Neg (NEGATIVE); Opiate Scree,Urine Neg (NEGATIVE); Phencyclidine Screen, Urine Neg (NEGATIVE)
[2023-06-21] MEDS ORDERED: miSOPROStol 100 mcg TAB ONE ×3 (01:42→12:11)
[2023-06-21] MEDS: LACTATED RINGER'S 1,000 ML IV SCH ×2 (02:42→11:23)
[2023-06-21] MEDS ORDERED: NALOXONE HCL 0.4 MG/ML VIAL IV ONE (14:45)
[2023-06-21] MEDS ORDERED: fentaNYL CITRATE 100 MCG/2 ML VL IV ONE (14:45)
[2023-06-21] MEDS ORDERED: ePHEDrine SULFATE 50 MG/ML AMP IV ONE (14:45)
[2023-06-21] MEDS ORDERED: LACTATED RINGER'S 1,000 ML IV ONE (14:45)
[2023-06-21] MEDS ORDERED: ROPIVACAINE HCL 100 ML ONE (14:52)
[2023-06-21] MEDS ORDERED: LACT. RINGERS/OXYTOCIN 20UNITS 500 ML IV ONE ×2 (16:45→17:15)
[2023-06-21] MEDS ORDERED: TERBUTALINE SULFATE 1 MG/ML 1ML VIAL SC PRN (16:45)
[2023-06-21] MEDS ORDERED: LACT. RINGERS/OXYTOCIN 20UNITS 1,000 ML IV SCH (16:45)
[2023-06-21] MEDS ORDERED: ceFAZolin 2 GM/D5W100ml 100 ML IV ONE (17:15)
[2023-06-21] MEDS ORDERED: CALCIUM GLUC 4.65 MEQ/10ML IV ONE ×3 (20:00)
[2023-06-21] MEDS ORDERED: LORazepam 2MG/ML-1ML VIAL IV ONE (20:00)
[2023-06-21] MEDS ORDERED: hydrALAZINE HCL 20 MG/ML VL IV PRN ×2 (20:00)
[2023-06-21] MEDS ORDERED: LACTATED RINGER'S 1,000 ML IV SCH (20:00)
[2023-06-21] MEDS ORDERED: MAGNESIUM SULFATE 40MG/ML 1,000 ML IV SCH (20:00)
[2023-06-21] MEDS ORDERED: MAGNESIUM SULFATE 100 ML IV ONE (20:00)
[2023-06-21 23:41] VITALS: RESP 17
[2023-06-22] MEDS ORDERED: ROPIVACAINE HCL 100 ML ONE (00:10)
[2023-06-22] MEDS ORDERED: diphenhdrAMINE HCL 50 MG/1 ML VL ONE (00:56)
[2023-06-22] MEDS ORDERED: diphenhdrAMINE HCL 50 MG/1 ML VL IV ONE (01:00)
[2023-06-22] MEDS ORDERED: ceFAZolin 1GM/50ML 50 ML IV SCH (01:15)
[2023-06-22] MEDS ORDERED: SODIUM CHLORIDE 0.9% 500 ML IUPC ONE (01:30)
[2023-06-22] MEDS ORDERED: SODIUM CHLORIDE 0.9% 1,000 ML IUPC SCH (01:30)
[2023-06-22] MEDS ORDERED: ACETAMINOPHEN 325 MG TAB PO PRN (03:45)
[2023-06-22] MEDS: IBUPROFEN 600 MG TAB PO PRN ×2 (04:57→20:07)
[2023-06-22] MEDS: WITCH HAZEL-GLYCERIN PAD TOP PRN (05:58)
[2023-06-22 06:30] VITALS: BP 121/69; PULSE 85; RESP 18; TEMP 97.8; O2SAT 96
[2023-06-22 08:07] LABS: RPR Non Reactive (Non Reactive)
[2023-06-22 11:00] VITALS: BP 127/76; PULSE 85; RESP 20; TEMP 97.8; O2SAT 98
[2023-06-22 15:00] VITALS: BP 118/66; PULSE 83; RESP 16; TEMP 98.2; O2SAT 97
[2023-06-22 18:59] LABS: Basophils # (auto) 0 10 ^3/uL (0-0.2); Basophils % (auto) 0.2 % (0.0-2.0); Eosinophils # (auto) 0.1 10 ^3/uL (0-0.8); Eosinophils % (auto) 0.7 % (0.0-7.0); Hematocrit 29.3 % (36.0-46.0); Hemoglobin 8.9 g/dL (12.2-16.2); Lymphocytes # (auto) 2.7 10 ^3/uL (0.4-5.4); Lymphocytes % (auto) 15.5 % (10.0-50.0); Mean Corpuscular Hemoglobin 21.1 pg (28.0-32.0); Mean Corpuscular Hgb Conc. 30.4 g/dL (32.0-36.0); Mean Corpuscular Volume 69.6 fL (80.0-100.0); Monocytes # (auto) 0.6 10 ^3/uL (0-1.3); Monocytes % (auto) 3.4 % (0.0-12.0); Neutrophils # (auto) 13.8 10 ^3/uL (1.6-8.6); Neutrophils % (auto) 80.2 % (37.0-80.0); Red Cell Distribution Width 17.7 % (11.8-14.3); White Blood Cell 17.2 10^3/uL (4.4-10.8)
[2023-06-22 19:00] VITALS: BP 128/84; PULSE 100; RESP 16; TEMP 99; O2SAT 98
[2023-06-22 19:09] LABS: INR 0.92 (0.9-1.15); Prothrombin Time 9.7 sec (9.3-11.8)
[2023-06-22 19:15] LABS: Albumin 3.2 g/dL (3.2-4.8); Alkaline Phosphatase 164 U/L (46-116); Anion Gap 10 (5-15); Aspartate Aminotransferase 18 U/L (13-40); Bilirubin, Total 0.6 mg/dL (0.2-1.0); Calcium 8.2 mg/dL (8.7-10.4); Carbon Dioxide 21 mmol/L (20-30); Chloride 107 mmol/L (98-107); Glucose 103 mg/dL (74-106); Potassium 3.6 mmol/L (3.5-5.1); Sodium 138 mmol/L (136-145); Uric Acid 5.4 mg/dL (3.1-7.8)
[2023-06-22 19:16] LABS: Total Protein 5.4 g/dL (5.7-8.2)
[2023-06-22 19:17] LABS: Alanine Aminotransferase < 9 U/L (7-40); BUN/Creatinine Ratio 10.6 (10.0-20.0); Blood Urea Nitrogen < 5 mg/dL (9-23)
[2023-06-22] MEDS ORDERED: DOCUSATE SOD 100 MG CAP PO SCH (22:00)
[2023-06-22 23:05] VITALS: BP 136/89; PULSE 89; RESP 18; TEMP 98.2; O2SAT 97
[2023-06-23 03:30] VITALS: BP 132/87; PULSE 86; RESP 16; TEMP 98; O2SAT 97
[2023-06-23 07:00] VITALS: BP 124/77; PULSE 84; RESP 16; TEMP 97.8; O2SAT 98
[2023-06-23 07:31] LABS: Basophils # (auto) 0.1 10 ^3/uL (0-0.2); Eosinophils # (auto) 0.3 10 ^3/uL (0-0.8); Hemoglobin 8.2 g/dL (12.2-16.2); Monocytes # (auto) 0.7 10 ^3/uL (0-1.3); Red Blood Cells 3.82 10^6/uL (4.0-5.20)
[2023-06-23 07:33] LABS: Basophils % (auto) 0.4 % (0.0-2.0); Eosinophils % (auto) 1.8 % (0.0-7.0); Hematocrit 26.7 % (36.0-46.0); Lymphocytes # (auto) 3.9 10 ^3/uL (0.4-5.4); Lymphocytes % (auto) 25.1 % (10.0-50.0); Mean Corpuscular Hemoglobin 21.5 pg (28.0-32.0); Mean Corpuscular Hgb Conc. 30.7 g/dL (32.0-36.0); Mean Corpuscular Volume 69.9 fL (80.0-100.0); Monocytes % (auto) 4.7 % (0.0-12.0); Neutrophils # (auto) 10.4 10 ^3/uL (1.6-8.6); Red Cell Distribution Width 17.8 % (11.8-14.3); White Blood Cell 15.3 10^3/uL (4.4-10.8)
[2023-06-23 07:52] LABS: Alkaline Phosphatase 142 U/L (46-116); Anion Gap 8 (5-15); Aspartate Aminotransferase 14 U/L (13-40); Bilirubin, Total 0.3 mg/dL (0.2-1.0); Blood Urea Nitrogen 8 mg/dL (9-23); Calcium 8.3 mg/dL (8.7-10.4); Carbon Dioxide 22 mmol/L (20-30); Chloride 109 mmol/L (98-107); Glucose 79 mg/dL (74-106); INR 0.93 (0.9-1.15); Partial Thromboplastin Time 30.6 SEC (24.5-34.5); Potassium 4.2 mmol/L (3.5-5.1); Prothrombin Time 9.8 sec (9.3-11.8); Sodium 139 mmol/L (136-145); Total Protein 5.2 g/dL (5.7-8.2); Uric Acid 5.7 mg/dL (3.1-7.8)
[2023-06-23 07:54] LABS: Alanine Aminotransferase < 9 U/L (7-40)
[2023-06-23 08:04] LABS: Albumin 3.1 g/dL (3.2-4.8)
[2023-06-23 10:52] VITALS: BP 127/73; PULSE 89; RESP 15; TEMP 98.2; O2SAT 97
[2023-06-23 12:37] LABS: Urine Bacteria NONE SEEN /hpf (None Seen); Urine Blood 3+ /uL (Negative); Urine Clarity Clear (Clear); Urine Color Colorless (Yellow); Urine Protein, UAD 1+ (Negative); Urine Urobilinogen Normal (Negative); Urine WBC <1 /hpf (0 - 5); Urine pH 6.5 (5.0-8.0)
[2023-06-23 12:40] LABS: Protein, Urine 36.6 mg/dL (0.0-11.9)
[2023-06-23] MEDS: WITCH HAZEL-GLYCERIN PAD TOP PRN (12:42)
[2023-06-23 12:43] LABS: Creatinine, Urine 28.06 mg/dL (30.0-125.0); Urine Protein/Creatinine Ratio 1.3
[2023-06-23] MEDS ORDERED: IBU600T PO (14:18)
[2023-06-23 15:15] VITALS: BP 123/74; PULSE 94; RESP 16; TEMP 98.4; O2SAT 97
[2023-06-23] MEDS ORDERED: TETANUS-DIPTH-ACEL PERTUSSIS 0.5ML SYR Tdap IM ONE (15:30)
[2023-06-23 16:00] VITALS: BP 123/68; PULSE 87; RESP 16; TEMP 98; O2SAT 97
[2023-06-23] MEDS ORDERED: FERROUS SULFATE 325mg EC TAB PO SCH (18:00)
[2023-06-23 19:06] LABS: Treponema pallidum Ab (FTA-Ab) Non Reactive (Non Reactive)
== END 2023-06-23 16:58 | disposition home or self-care (01) | DRG 560 ==
LOC: LDRP 15:10 → UNDOADMOB 15:10 → LDRP 15:40 → OBSVTOIN 19:10
PROVIDERS: ADMIT Obstetrics & Gynecology; ATTEND Obstetrics & Gynecology
PROC: 00HU33Z Insertion of Infusion Device into Spinal Canal, Percutaneous Approach (ICD-10-PCS; principal; 2023-06-21)
PROC: 3E0R3BZ Introduction of Anesthetic Agent into Spinal Canal, Percutaneous Approach (ICD-10-PCS; 2023-06-21)
PROC: 10E0XZZ Delivery of Products of Conception, External Approach (ICD-10-PCS; 2023-06-22)
DX: O14.94 Unspecified pre-eclampsia, complicating childbirth (principal); Z37.0 Single live birth; O24.429 Gestational diabetes mellitus in childbirth, unspecified control; D50.9 Iron deficiency anemia, unspecified; O69.1XX0 Labor and delivery complicated by cord around neck, with compression, not applicable or unspecified; O90.81 Anemia of the puerperium; Z3A.37 37 weeks gestation of pregnancy; Z88.0 Allergy status to penicillin
CPT/HCPCS: 36415; 59025; 59409; 62282; 76818; 80053; 80307; 81001; 82570; 82948; 82962; 83735; 84156; 84550; 85025; 85610; 85730; 86592; 86850; 86900; 86901; 90715; 94760; 94762; 96360; 96361; 96365; 96366; 96372; 96374; G0378; J2590

== ENCOUNTER → 2024-10-08 | Outpatient (CLI) | payer MEDICAID ==
[~2024-10-08] MED LIST changes: +IBU600T PO
[2024-10-08 13:29] LABS: Urine Bacteria None Seen /hpf (None Seen)
[2024-10-08 13:30] LABS: Basophils # (auto) 0.1 10 ^3/uL (0-0.2); Basophils % (auto) 0.6 % (0.0-2.0); Eosinophils # (auto) 0.4 10 ^3/uL (0-0.8); Eosinophils % (auto) 4.5 % (0.0-7.0); Hemoglobin 12.1 g/dL (12.2-16.2); Lymphocytes # (auto) 2.7 10 ^3/uL (0.4-5.4); Lymphocytes % (auto) 26.9 % (10.0-50.0); Mean Corpuscular Hemoglobin 26.5 pg (28.0-32.0); Mean Corpuscular Hgb Conc. 32.6 g/dL (32.0-36.0); Mean Corpuscular Volume 81.1 fL (80.0-100.0); Monocytes # (auto) 0.6 10 ^3/uL (0-1.3); Monocytes % (auto) 6.3 % (0.0-12.0); Neutrophils # (auto) 6.2 10 ^3/uL (1.6-8.6); Neutrophils % (auto) 61.7 % (37.0-80.0); Platelet Count (auto) 356 10^3/uL (140-450); Red Blood Cells 4.56 10^6/uL (4.0-5.20); Red Cell Distribution Width 17.3 % (11.8-14.3)
[2024-10-08 13:34] LABS: Urine Blood Negative /uL (Negative); Urine Clarity Turbid (Clear); Urine Color Light-Yellow (Yellow); Urine Mucus FEW (None Seen); Urine Protein, UAD Negative (Negative); Urine Specific Gravity 1.025 (1.001-1.035); Urine Squamous Epithelial Cell MOD /hpf (<5); Urine Urobilinogen Normal (Negative); Urine WBC 4 /HPF (0-5); Urine pH 6.5 (5.0-9.0)
[2024-10-08 13:50] LABS: Alanine Aminotransferase 37 U/L (7-40); Albumin 4.6 g/dL (3.2-4.8); Alkaline Phosphatase 88 U/L (46-116); Anion Gap 10 (5-15); Aspartate Aminotransferase 18 U/L (13-40); BUN/Creatinine Ratio 15.6 (10.0-20.0); Bilirubin, Total 0.7 mg/dL (0.2-1.0); Blood Urea Nitrogen 10 mg/dL (9-23); Calcium 9.8 mg/dL (8.7-10.4); Carbon Dioxide 22 mmol/L (20-31); Chloride 109 mmol/L (98-107); Cholesterol 170 mg/dL (< 200); Glucose 93 mg/dL (74-106); HDL Cholesterol 43 mg/dL (40-59); LDL Cholesterol 125 mg/dL (< 100); Potassium 3.9 mmol/L (3.5-5.1); Sodium 141 mmol/L (136-145); Total Protein 7.6 g/dL (5.7-8.2); Triglycerides 75 mg/dL (< 150)
[2024-10-08 14:05] LABS: Erythrocyte Sedimentation Rate 26 mm/hr (0-20)
== END | disposition home or self-care (01) ==
LOC: LAB 13:11
PROVIDERS: ATTEND Internal Medicine
DX: Z13.1 Encounter for screening for diabetes mellitus (principal); Z00.00 Encounter for general adult medical examination without abnormal findings
CPT/HCPCS: 36415; 80053; 80061; 81001; 82043; 82306; 82607; 83036; 84443; 85025; 85652; 87070; 87205